=== PATIENT | male | born 1990 | race Two or more races ===

== ENCOUNTER 2016-03-31 20:41 | Emergency (ER) | payer MEDICAID ==
[2016-03-31 20:53] VITALS: BP 154/84; PULSE 67; RESP 16; TEMP 98.2; O2SAT 98
--- NOTE | 2016-03-31 21:23 | UCPHY ---
H & P Time Seen by Provider: 03/31/16 21:14 Patient Type: New HPI/ROS: This patient presents with a chief complaint of a sore throat which began 2 days ago and associated with bilateral ear pain, nasal congestion and a mild cough. He has not had a fever. He has had intermittent headache but no myalgias. He denies chest pain or shortness of breath Smoking Status: Never smoked Physical Exam: GENERAL: Well-appearing, well-nourished and in no acute distress. He is slightly hoarse HEAD: Atraumatic, normocephalic. EYES: , sclera anicteric, conjunctiva are normal. ENT: TMs normal, nares patent, oropharynx clear without exudates. Moist mucous membranes. There is some lymphoid hyperplasia of the pharynx with mild injection. NECK: Normal range of motion, supple without lymphadenopathy or JVD. LUNGS: Breath sounds clear to auscultation bilaterally and equal. No wheezes rales or rhonchi. HEART: Regular rate and rhythm EXTREMITIES: Normal range of motion, NEUROLOGICAL: Cranial nerves II through XII grossly intact. Normal speech, normal gait. PSYCH: Normal mood, normal affect. SKIN: Warm, dry, normal turgor, no visible rashes or lesions. Constitutional: Initial Vital Signs Temperature (C) 36.8 C 03/31/16 20:49 Heart Rate 67 03/31/16 20:49 Respiratory Rate 16 03/31/16 20:49 Blood Pressure 154/84 H 03/31/16 20:49 O2 Sat (%) 98 03/31/16 20:49 O2 Delivery Mode Room Air Allergies/Adverse Reactions: No Known Allergies Allergy (Unverified 03/31/16 20:48) Home Medications: Medication Instructions Recorded NK [No Known Home Meds] 03/31/16 Medical Decision Making Differential Diagnosis: I believe that this patient has a viral illness. I agree with the negative strep screen. - Data Points Laboratory Results: 03/31/16 03/31/16 Unknown 20:55 Group A Strep Screen NEGATIVE (NEGATIVE) Group A Strep DNA Pending Departure - Departure Disposition: Home, Routine, Self-Care Clinical Impression: Pharyngitis Qualifiers: Pharyngitis/tonsillitis etiology: unspecified etiology Qualifier Code: (J02.9) Acute pharyngitis, unspecified Condition: Good Instructions: Pharyngitis (ED) Additional Instructions: If your symptoms have not resolved in 5 more days you should be re-evaluated. If you feel that your symptoms are worsening you should be seen sooner. Try Cepacol which you can obtain without a prescription. Adult Pain & Fever Control: We recommend Acetaminophen (Tylenol) and Ibuprofen (Motrin, Advil) for pain and fever control. When fever is high or pain severe, both drugs can be used at the same time, but at different intervals. Please note the time differences. Your dose is: Acetaminophen [650]mg every 4 to 6 hours ibuprofen [600]mg every [6] hours with food OR naproxen Sodium (Aleve) [440]mg every 12 hours. Note: do not take Acetaminophen with Hydrocodone (Vicodin, Lortab) or Oxycodone (Percocet). These medications also contain Acetaminophen. No more than 3000 mg of Acetaminophen should be taken in 24 hours (for an adult) . The maximal dose of ibuprofen that it is safe in a 24-hour period is 2400 mg. You may take 400 mg every 4 hours, 600 mg every 6 hours or 800 mg every 8 hours safely. - PQRS PQRS Measurement: Not applicable
== END 2016-03-31 22:10 | disposition home or self-care (01) ==
LOC: CED 20:41
DX: J02.9 Acute pharyngitis, unspecified (principal); H92.03 Otalgia, bilateral; R09.81 Nasal congestion
CPT/HCPCS: 87880-PO; 99203-PO; G0463-PO